=== PATIENT | female | born 2000 | race Caucasian/White ===

== ENCOUNTER 2020-08-30 12:05 | Inpatient (IN) ==
--- NOTE | 2020-08-30 13:14 | Obstetrical Progress Note ---
Date of Service August 30, 2020 Assessment & Plan (1) Two vessel umbilical cord: Plan: Reassuring heart tones and movement. Kick counts while at home given [address] Connor did bedside sonogram today in office for position and did not comment on any abnormalities, but when I speak to her by phone she also notes she didn't get a specific look at fluid and can't comment on adequacy. Given 40wk GA, would like at least a fluid check, so will get a BPP here on L&D. Last growth scan at 36wk reviewed, reassuring. Patient is planned for induction, she and FOB would like to wait at least a bit to allow cervical ripening if not actual spontaneous labor. Available dates in book reviewed with them at bedside today. They will choose a date prior to departing, assuming BPP is OK. They are aware to schedule office visit for the business day prior to IOL. Subjective 20yo at 40wk with SIUP complicated by 2VC. Sent to L&D after office visit due to NST in office being "reactive but with baseline 160." I have discussed the findings in office with Dr. Connor directly, by phone. Essentially the baseline was upper limit of normal, strip otherwise looked reassuring, and no BPP was done in office today. The patient was instead sent to L&D for longer monitoring to follow her baseline and ensure it did not elevate out of normal range, and to schedule an IOL if delivery was not in dicated today. Here on L&D the patient notes good FM, no painful ctx, no LOF, no VB. Physical Exam Physical Exam: FHT baseline 155, mod alise, +acc, no decels. Nearing an hour of monitoring at this time. Fetus likely in sleep cycle when patient first put on monitor, baseline then noted to vary between 145-155 at times but no changes that qualify as a deceleration (15bpm below baseline x 15 seconds) are appreciated. More recent portion of monitoring shows frequent accelerations. [place] rare activity which patient is able to feel if she watches the toco but does not find painful. Cervix per Dr. Connor was cl/th/hi today in office. Results & Data ([facility]) Vital Signs (Past 12 Hours) Vital Signs Temp Pulse Resp BP 08/30/20 12:20 98.2 F 20 08/30/20 12:15 97 H 121/82 PG Care Time/CCT Total # of Minutes Spent Total Time Spent with Patient: Total time spent is greater than 50% in coordination of care (as documented) at patient's floor/unit and/or counseling patient: Coding Level of Care Code None Diagnoses Two vessel umbilical cord Q27.0
--- NOTE | 2020-08-30 14:23 | Ultrasound Report ---
US OB BPP wo NST single CLINICAL HISTORY: 40wk 2VC COMPARISON STUDY: OB ultrasound August 03, 2020. TECHNIQUE: Transabdominal sonography of the pelvis was performed to assess biophysical profile. FINDINGS: Single viable intrauterine gestation is noted. heart rate is within normal limits ran ging from 1329 to 156 bpm. Amniotic fluid index is normal at 11.73 cm. Presentation is cephalic. No p lacental abnormalities are identified by sonography. breathing and movement were normal. tone was diminished. Therefore, the biophysical profile is 6 out of 8. IMPRESSION: 1. Single viable intrauterine gestation with normal heart rate. 2. Biophysical profile 6 out of 8. Diminished tone. ACT 112: Negative or not required by law. Electronically signed by: Mariusz Schumacher M.D. 08/30/2020 2:21 PM
[2020-08-30] MEDS ORDERED: OXYTOCIN 30 UNITS/500 ML BAG IV PRN ×2 (15:10→15:16)
[2020-08-30] MEDS ORDERED: LACTATED RINGER'S 1,000 ML IV PRN (15:10)
--- NOTE | 2020-08-30 15:20 | Obstetrical Progress Note ---
Date of Service August 30, 2020 Assessment & Plan (1) Two vessel umbilical cord: Plan: Given 2VC and NRFHT/BPP today, move to IOL. Patient for harris balloon, +/- concurrent pitocin. Subjective Patient continues to be without complaints and feeling good FM, now returned from US suite where she had BPP. She and FOB were informed by this MD that she had a BPP of 6/8. This could be followed by a repeat in 24hr, but at 40 weeks with any question of status, there is no upside to waiting that extra day for the fetus and my recommendation would be to proceed to induction of labor. They are agreeable to this plan. Physical Exam Physical Exam: /-2/soft/post VTX intact no VB FHT Cat 1 Sandy Q6-7, not painful Results & Data ([place]) Vital Signs (Past 12 Hours) Vital Signs Temp Pulse Resp BP 08/30/20 15:13 93 H 138/73 08/30/20 15:10 103 H 141/75 H 08/30/20 15:02 96 H 142/83 H 08/30/20 14:17 18 08/30/20 12:20 98.2 F 20 08/30/20 12:15 97 H 121/82 PG Care Time/CCT Total # of Minutes Spent Total Time Spent with Patient: Total time spent is greater than 50% in coordination of care (as documented) at patient's floor/unit and/or counseling patient: Coding Level of Care Code None Diagnoses Two vessel umbilical cord Q27.0
[2020-08-30 15:37] LABS: Hemoglobin 11.8 g/dL (12.0-16.0); Mean Corpuscular Hemoglobin 24.4 pg (25-34); Mean Corpuscular Hgb Conc 31.9 g/dL (32-36); Mean Corpuscular Volume 76.6 fL (80-100); Platelet Count 178 K/uL (130-400); RDW Coefficient of Variation 14.5 % (11.5-14.5); RDW Standard Deviation 40.9 fL (36.4-46.3); Red Blood Count 4.83 M/uL (4.2-5.4)
[2020-08-31] MEDS ORDERED: BUTORPHANOL TARTRATE 1 MG/ML VIAL IV PRN (04:22)
[2020-08-31] MEDS ORDERED: SODIUM CHLORIDE 0.9% INJ 10 ML VIAL ONE (05:18)
[2020-08-31] MEDS ORDERED: ePHEDrine sulfate 50 MG/ML AMP ONE (05:18)
[2020-08-31] MEDS ORDERED: BUPIVACAINE 0.25% 30 ML VIAL ONE (05:18)
[2020-08-31] MEDS ORDERED: fentaNYL citrate 100 MCG/2 ML VIAL ONE (05:19)
[2020-08-31] MEDS ORDERED: fentaNYL 2MCG/ML ROPIVACAINE 1.25MG/ML 100 ML BAG EPI ONE (05:19)
--- NOTE | 2020-08-31 05:50 | Anesthesiology Consultation ---
Date of Service August 31, 2020 Assessment & Plan (1) Supervision of normal intrauterine in primigravida: ASA ASA2 Proposed Anesthesia Anesthesia Type: Labor Epidural Risk / Benefits Reviewed With: PT / POA / Parent / Guardian, Accepts Plan and Informed Consent Obtained History Height/Weight Height: 5 ft 7 in Weight: 85.275 kg Allergies Allergy/AdvReac Type Severity Reaction Status Date / Time No Known Allergies Allergy Verified 08/30/20 10:49 Medications Home Medications Medication Instructions Recorded Confirmed Last Taken prenat.vits,nate,zkv-hbqj-wqmtk 1 tab PO DAILY 01/28/20 08/30/20 08/26/20 20:00 breast pump #1 ea 08/16/20 08/30/20 Unknown Active Medications Generic Name Dose Route Start Last Admin Trade Name Freq PRN Reason Stop Dose Admin Butorphanol Tartrate 1 mg 08/31/20 04:22 08/31/20 04:38 Butorphanol Tartrate 1 Mg/Ml Vial IV 09/30/20 04:21 1 mg Q2HWA PRN Administration Pain Oxytocin 30 units in 500 mls @ 3 mls/hr 08/30/20 15:16 08/31/20 03:50 Pitocin IV 09/01/20 15:15 0.18 units/hr .Q24H PRN 3 mls/hr Labor Induction/Augmentation Titration Protocol 0.18 UNITS/HR Lactated Ringer's 1,000 mls @ 125 mls/hr 08/30/20 15:10 08/31/20 02:31 Lr IV 09/01/20 15:09 125 mls/hr .Q8H PRN Administration L&D Protocol Protocol NPO Date Last Intake of Fluids: 08/31/20 Time Last Intake of Fluids: 05:00 Date Last Intake of Solids: 08/31/20 Time Last Intake of Solids: 00:00 Past Medical History Medical History Anxiety Chronic headaches Past Family History Family History Family/Other Anemia Diabetes Hypertension Dyslipidemia Hepatitis Ovarian cyst Mother Multiple sclerosis Hypothyroidism Grandfather (Maternal) Diabetes Grandmother (Maternal) Hypothyroidism Past Surgical History Surgical History No pertinent past surgical history S/P wisdom tooth extraction Social History Smoking Status: Never smoker Hx Alcohol Use: No Hx Substance Use: No Physical Exam Vital Signs Last Vital Signs Temp 37.0 C 08/31/20 04:00 Pulse 88 08/31/20 03:48 Resp 18 08/31/20 00:17 BP 120/67 08/31/20 03:48 ENMT Mouth: no TMJ abnormality Thyromental Distance: > or= 3.5 Finger Breadths Mallampati Class: II Neck normal visual inspection and trachea midline; neck extension not limited Respiratory normal respiratory effort Auscultation: lungs clear to auscultation bilaterally Cardiovascular Rate/Rhythm: regular rate and regular rhythm Heart Sounds: no murmur Musculoskeletal Spine: normal cervical ROM Extremities: full ROM of extremities Neurologic moves all extremities Psychiatric Orientation: alert and oriented x 3 Testing Laboratory Results 08/30/20 15:27
[2020-08-31] MEDS ORDERED: NALOXONE HCL 1 MG in SODIUM CHLORIDE 0.9% 1000ML 1,000 ML IV PRN (06:14)
[2020-08-31] MEDS ORDERED: ePHEDrine sulfate 50 MG/ML AMP IV PRN (06:14)
[2020-08-31] MEDS ORDERED: NALOXONE HCL 0.4 MG/1 ML VIAL/CARP IV PRN (06:14)
[2020-08-31] MEDS ORDERED: fentaNYL 2MCG/ML ROPIVACAINE 1.25MG/ML 100 ML BAG EPI PRN (06:14)
[2020-08-31] MEDS ORDERED: ONDANSETRON INJ 2 MG/ML 2 ML VIAL IV PRN (06:14)
[2020-08-31] MEDS ORDERED: NALBUPHINE HCL INJ 10 MG/ML AMP IV PRN (06:14)
[2020-08-31] MEDS ORDERED: diphenhydrAMINE 50 MG/ML VIAL IV PRN (06:14)
[2020-08-31] MEDS ORDERED: METOCLOPRAMIDE HCL 20 MG in SODIUM CHLORIDE 0.9% 50 ML IV PRN (06:14)
--- NOTE | 2020-08-31 08:27 | Labor Progress Brief Note ---
Date of Service August 31, 2020 Subjective Reason For Note: Routine Evaluation Assessment & Plan (1) Mild preeclampsia: Plan: 20yo at 40.1 weeks GA. IOL 1 Fetus: Cat 1 2. Labor: s/p Benjamin. SROM, Continue pitocin. Admission and Anticipated Discharge Date Admission Date: August 30, 2020 Physical Exam Constitutional: WD/WN, vitals as above Genitourinary: OB Exam Abdomen: + vertex Manual OB Exam: + cervical dilation (7.5), + cervical effacement 90% and + station 0 OB Exam Monitor Tracing: + external FHT monitor used, + external uterine monitor used, + ca tegory I and + normal FHT variability Results & Data ([facility]) Vital Signs (Past 12 Hours) Vital Signs Temp Pulse Resp BP Pulse Ox 08/31/20 08:21 108 H 120/78 08/31/20 08:18 96 H 100 08/31/20 08:13 94 H 100 08/31/20 08:08 106 H 100 08/31/20 08:06 104 H 132/74 08/31/20 08:03 121 H 100 08/31/20 07:58 76 100 08/31/20 07:53 77 100 08/31/20 07:51 73 121/61 08/31/20 07:48 81 98 08/31/20 07:43 84 98 08/31/20 07:38 75 98 08/31/20 07:36 74 122/62 08/31/20 07:33 80 97 08/31/20 07:28 80 98 08/31/20 07:23 72 98 08/31/20 07:20 75 115/65 08/31/20 07:18 72 98 08/31/20 07:13 96 H 99 08/31/20 07:08 75 96 08/31/20 07:05 36.6 C 82 20 115/65 08/31/20 07:03 104 H 98 08/31/20 06:58 97 H 97 08/31/20 06:53 75 97 08/31/20 06:51 85 119/61 08/31/20 06:48 96 H 97 08/31/20 06:45 18 08/31/20 06:43 92 H 97 08/31/20 06:38 82 110/74 97 08/31/20 06:32 87 97 08/31/20 06:30 18 08/31/20 06:27 83 96 08/31/20 06:22 90 94 08/31/20 06:19 87 123/79 08/31/20 06:17 92 H 118/72 97 08/31/20 06:15 96 H 18 113/65 08/31/20 06:13 93 H 118/70 08/31/20 06:12 36.8 C 92 H 97 08/31/20 06:11 84 116/65 08/31/20 06:09 98 H 120/75 08/31/20 06:07 89 100 08/31/20 06:06 100 H 120/70 08/31/20 06:05 99 H 87 L 08/31/20 06:02 109 H 99 08/31/20 05:57 113 H 95 08/31/20 05:55 117 H 88 L 08/31/20 05:52 102 H 100 08/31/20 05:47 95 H 98 08/31/20 04:00 37.0 C 08/31/20 03:48 88 120/67 08/31/20 01:57 37.0 C 08/31/20 00:17 37.0 C 18 08/31/20 00:13 71 111/61 Coding Level of Care Code None Diagnoses Mild preeclampsia O14.00
--- NOTE | 2020-08-31 11:48 | Anesthesia Procedure Note ---
Date of Service August 31, 2020 Anesthesia Post Epidural Note Vital Signs Vital Signs: Temp Pulse Resp BP Pulse Ox 36.7 C 106 H 20 111/56 L 96 08/31/20 09:07 08/31/20 11:35 08/31/20 09:07 08/31/20 11:35 08/31/20 10:58 Notes Mental Status: alert / awake / arousable and participated in evaluation Nausea / Vomiting: adequately controlled Pain: adequately controlled Airway Patency, RR, SpO2: stable & adequate BP & HR: stable & adequate Hydration State: stable & adequate Neuraxial Anesthesia: was administered and sensory block is resolving Anesthetic Complications: no major complications apparent and Pt Satisfied with anesthetic care Epidural: Removed without complications and With tip intact
--- NOTE | 2020-08-31 11:59 | Delivery Summary ---
Vaginal Delivery Summary Date of Service August 31, 2020 Vaginal Delivery Summary and 1st Degree LAC (bilateral labial lac repaired) Patient is a 20-year-old 1 P0 white female who had presented to her scheduled OB visit and NST for two-vessel cord. The heart baseline was elevated she was sent to labor and delivery for further evaluation and possible induction of labor. Biophysical profile was done which was 6 out of 8. Because she is at 40 weeks gestation now, the plan was induction of labor. A Benjamin catheter was placed in the cervix for ripening. Pitocin augmentation of her labor was begun. Membranes were ruptured for clear fluid. She received effective epidural analgesia. She progressed to full dilation and pushed effectively over intact perineum for delivery of a viable female . After the head was delivered the right hand was then delivered posteriorly. The shoulders and rest of the infant were delivered easily. The was vigorous and moving all 4 limbs. After 1 minute the cord was clamped clamped and cut. The placenta was expressed intact with a two-vessel cord. bleeding was controlled with dilute Pitocin. Bilateral labial lacerations were repaired with 3-0 chromic in the usual fashion. Estimated blood loss was 350 cc. Mother and infant were doing well after delivery. [facility] [place] Vaginal Delivery Charge Delivery Type Details: and 1st Degree LAC (bilateral labial lac repaired)
[2020-08-31] MEDS ORDERED: SUPERCREAM 0.870% 15 GM JAR EXT PRN (15:00)
[2020-08-31] MEDS ORDERED: IBUPROFEN 600 MG TAB PO PRN (15:00)
[2020-08-31] MEDS ORDERED: OXYTOCIN 30 UNITS/500 ML BAG IV PRN (15:00)
[2020-08-31] MEDS ORDERED: BENZOCAINE 20% AER SPR 82.5 GM CAN EXT PRN (15:00)
[2020-08-31] MEDS ORDERED: DIPHTHERIA/TETANUS/PERTUSSIS 0.5 ML SYR/VIAL IM ONE (15:00)
[2020-08-31] MEDS ORDERED: HYDROCORTISONE ACETATE 25 MG SUPP PR PRN (15:00)
[2020-08-31] MEDS ORDERED: bisacodyL 10 MG SUPP PR PRN (15:00)
[2020-08-31] MEDS ORDERED: ACETAMINOPHEN 325 MG TAB PO PRN (15:00)
[2020-08-31] MEDS ORDERED: oxyCODONE/ACETAMINOPHEN 5mg/325mg TAB PO PRN (15:00)
[2020-08-31] MEDS ORDERED: Nursing to Pharmacy Communication SCH (20:45)
[2020-08-31] MEDS: DOCUSATE SODIUM 100 MG CAP PO SCH (21:49)
[2020-08-31] MEDS: IBUPROFEN 200 MG/10 ML UDC PO PRN (23:43)
[2020-09-01] MEDS: IBUPROFEN 200 MG/10 ML UDC PO PRN ×2 (04:38→08:52)
[2020-09-01 06:31] LABS: Hematocrit (blood only) 29.9 % (37-47); Hemoglobin 9.3 g/dL (12.0-16.0); Mean Corpuscular Hemoglobin 24.1 pg (25-34); Mean Corpuscular Hgb Conc 31.1 g/dL (32-36); Mean Corpuscular Volume 77.5 fL (80-100); Mean Platelet Volume 11.5 fL (7.4-10.4); Platelet Count 164 K/uL (130-400); RDW Coefficient of Variation 14.7 % (11.5-14.5); RDW Standard Deviation 42.1 fL (36.4-46.3); Red Blood Count 3.86 M/uL (4.2-5.4); White Blood Count 11.28 K/uL (4.8-10.8)
[2020-09-01] MEDS ORDERED: PRENATAL VITAMIN 1 TAB PO SCH (08:00)
--- NOTE | 2020-09-01 08:08 | Obstetrical Progress Note ---
Date of Service September 01, 2020 Assessment & Plan (1) Encounter for care and examination after delivery: satisfactory progress continue current care plan feeding issues with the baby so will continue to monitor today Day #:: 1 Subjective Ambulation: ambulating normally Voiding: no voiding problems Diet Tolerance:: regular diet Lochia:: Small Feeding Type:: bottle feeding Review of Systems All systems reviewed & are unremarkable except as noted in HPI & below Physical Exam Constitutional WD/WN, vitals as above Gastrointestinal (Abdomen) normal bowel sounds, soft, nontender, no hepatosplenomegaly Psychiatric A+Ox3, euthymic affect Genitourinary OB Exam Abdomen: + fundal height Fundus: + firm and + relation to umbilicus (at U); not tender Results & Data ([facility]) Vital Signs (Past 12 Hours) Vital Signs Temp Pulse Resp BP Pulse Ox 09/01/20 03:45 97.9 F 76 20 101/70 100 08/31/20 23:40 98.4 F 76 20 105/71 100 08/31/20 23:00 98.2 F 81 16 118/80 100
[2020-09-01] MEDS: DOCUSATE SODIUM 100 MG CAP PO SCH (08:52)
[2020-09-01] MEDS ORDERED: SERTRALINE HCL 50 MG TABLET PO SCH (09:00)
[2020-09-01] MEDS ORDERED: bisacodyL 5 MG TABEC PO SCH (20:00)
== END 2020-09-01 18:10 | disposition home or self-care (01) | DRG 807 ==
LOC: OPB 12:05 → 4S1 12:07 → 4S2 08-31 15:22
DX: O70.0 First degree perineal laceration during delivery; O14.04 Mild to moderate pre-eclampsia, complicating childbirth; O35.1XX1 Maternal care for (suspected) chromosomal abnormality in fetus, fetus 1; Z37.0 Single live birth; Z3A.40 40 weeks gestation of pregnancy; Q27.0 Congenital absence and hypoplasia of umbilical artery

== ENCOUNTER 2022-10-08 03:55 | Inpatient (IN) ==
[2022-10-08] MEDS ORDERED: OXYTOCIN 30 UNITS/500 ML BAG IV PRN ×2 (04:14→09:37)
[2022-10-08] MEDS ORDERED: LIDOCAINE 1% LOCAL 20 ML VIAL INFIL PRN (04:14)
[2022-10-08] MEDS: LACTATED RINGER'S 1,000 ML IV PRN ×2 (04:25→06:14)
[2022-10-08] MEDS ORDERED: fentaNYL citrate PF 100 MCG/2 ML VIAL ONE (04:26)
[2022-10-08] MEDS ORDERED: BUPIVACAINE 0.25% PF 30 ML VIAL ONE (04:27)
[2022-10-08] MEDS ORDERED: fentaNYL 2MCG/ML ROPIVACAINE 1.25MG/ML 100 ML BAG EPI ONE (04:27)
[2022-10-08] MEDS ORDERED: SODIUM CHLORIDE 0.9% PF INJ 10 ML VIAL ONE (04:27)
[2022-10-08] MEDS ORDERED: ePHEDrine sulfate 50 MG/ML AMP ONE (04:27)
[2022-10-08] MEDS ORDERED: LIDOCAINE 2%/EPINEPHRINE 1:200,000 20 ML PF ONE (04:27)
[2022-10-08 05:18] LABS: Hematocrit (blood only) 32.7 % (37.0-47.0); Hemoglobin 10.6 g/dl (12.0-16.0); Mean Corpuscular Hemoglobin 24.5 pg (25.0-34.0); Mean Corpuscular Hgb Conc 32.4 g/dL (32.0-36.0); Mean Corpuscular Volume 75.5 fL (80.0-100.0); Mean Platelet Volume 12.3 fL (9.4-12.4); Platelet Count 212 K/uL (130-400); RDW Coefficient of Variation 14.3 % (11.5-14.5); RDW Standard Deviation 38.7 fL (36.4-46.3); Red Blood Count 4.33 M/uL (4.20-5.40); White Blood Count 14.32 K/ul (4.8-10.8)
--- NOTE | 2022-10-08 05:25 | Anesthesiology Consultation ---
Date of Service October 08, 2022 Assessment & Plan Chart Review Chart Review: Acceptable Risk for Labor Epidural Consults Requested none History Height/Weight Height: 5 ft 7 in Weight: 72.575 kg Allergies Allergy/AdvReac Type Severity Reaction Status Date / Time No Known Allergies Allergy Verified 10/08/22 04:06 Medications Home Medications Medication Instructions Recorded Confirmed Last Taken prenat.vits,nate,wna-cdhi-qdbtp 1 tab PO DAILY 01/28/20 10/08/22 10/07/22 sertraline 25 mg tablet 25 mg PO DAILY #30 tabs 09/28/22 10/08/22 10/07/22 Active Medications Generic Name Dose Route Start Last Admin Trade Name Freq PRN Reason Stop Dose Admin Lactated Ringer's 1,000 mls @ 125 mls/hr 10/08/22 04:14 10/08/22 05:12 Lr IV 10/10/22 04:13 125 mls/hr .Q8H PRN Infusion L&D Protocol Protocol Past Medical History Medical History (Updated 10/08/22 @ 04:15 by Karen Cr RN) Anxiety Chronic headaches Varicella vaccination Past Family History Family History Family/Other Anemia Diabetes Hypertension Dyslipidemia Hepatitis Ovarian cyst Mother Multiple sclerosis Hypothyroidism Grandfather (Maternal) Diabetes Grandmother (Maternal) Hypothyroidism Denies family history of Ovarian cancer Breast cancer Colorectal cancer Past Surgical History Surgical History S/P wisdom tooth extraction Social History Smoking Status: Never smoker Do You Dip or Chew Tobacco: No Hx Alcohol Use: No Hx Substance Use: No substance use type: does not use Physical Exam Vital Signs Last Vital Signs Temp 36.8 C 10/08/22 04:31 Pulse 81 10/08/22 05:24 Resp 20 10/08/22 04:31 BP 106/65 10/08/22 05:24 Pulse Ox 100 10/08/22 05:22 Testing Laboratory Results 10/08/22 04:30
[2022-10-08] MEDS ORDERED: NALBUPHINE HCL INJ 10 MG/ML AMP IV PRN (05:26)
[2022-10-08] MEDS ORDERED: LIDOCAINE 2% MPF LOCAL 5 ML VIAL EPI PRN (05:26)
[2022-10-08] MEDS ORDERED: NALOXONE HCL 0.4 MG/1 ML VIAL/CARP IV PRN (05:26)
[2022-10-08] MEDS ORDERED: SODIUM CHLORIDE 0.9% PF INJ 10 ML VIAL EPI STA (05:26)
[2022-10-08] MEDS ORDERED: BUPIVACAINE 0.25% PF 30 ML VIAL EPI STA (05:26)
[2022-10-08] MEDS ORDERED: ONDANSETRON INJ 2 MG/ML 2 ML VIAL IV PRN (05:26)
[2022-10-08] MEDS ORDERED: fentaNYL citrate PF 100 MCG/2 ML VIAL EPI PRN (05:26)
[2022-10-08] MEDS ORDERED: fentaNYL citrate PF 100 MCG/2 ML VIAL EPI STA (05:26)
[2022-10-08] MEDS ORDERED: diphenhydrAMINE 50 MG/ML VIAL IV PRN (05:26)
[2022-10-08] MEDS ORDERED: BUPIVACAINE 0.25% PF 30 ML VIAL EPI PRN (05:26)
[2022-10-08] MEDS ORDERED: NALOXONE HCL 1 MG in SODIUM CHLORIDE 0.9% 1,000 ML IV PRN (05:26)
[2022-10-08] MEDS ORDERED: ROPIVACAINE 0.5% PF 5 MG/ML 20 ML VIAL EPI PRN (05:26)
[2022-10-08] MEDS ORDERED: fentaNYL 2MCG/ML ROPIVACAINE 1.25MG/ML 100 ML BAG EPI PRN (05:26)
[2022-10-08] MEDS ORDERED: SODIUM CHLORIDE 0.9% PF INJ 10 ML VIAL EPI PRN (05:26)
[2022-10-08] MEDS ORDERED: LIDOCAINE 2%/EPINEPHRINE 1:200,000 20 ML PF EPI STA (05:26)
[2022-10-08] MEDS ORDERED: ePHEDrine sulfate 50 MG/ML AMP IV PRN (05:26)
[2022-10-08] MEDS ORDERED: miSOPROStoL 200 MCG TAB ONE (09:06)
--- NOTE | 2022-10-08 09:36 | Delivery Summary ---
Vaginal Delivery Summary Date of Service October 08, 2022 Vaginal Delivery Summary and 1st Degree LAC Patient progressed to 10 cm dilated 100% effaced +2 station pushed over intact perineum with epidural anesthesia and delivered a viable female with weight and Apgars pending. Has a delivered in URBANO position rest due to right transverse. No nuchal cord was noted. Body shoulders quickly followed and was noted to be vigorous soon after delivery. A 1 minute delayed cord clamping was initiated after which the cord was double clamped and cut. Cord blood obtained. Attention was then turned to delivery the placenta was delivered intact with three-vessel cord gentle cord traction. Inspection of the perineum vagina and cervix there is noted to be bilateral periurethral lacerations which were repaired with 3-0 Vicryl with interrupted stitch. Needle sponge and counts are correct at the completion of the case. Both mother and stable in the immediate postdelivery period. MNP Vaginal Delivery Charge Delivery Type Details: and 1st Degree LAC
[2022-10-08] MEDS ORDERED: IBUPROFEN 600 MG TAB PO PRN (09:37)
[2022-10-08] MEDS ORDERED: miSOPROStoL 200 MCG TAB PR ONE (09:37)
[2022-10-08] MEDS ORDERED: ACETAMINOPHEN 325 MG TAB PO PRN (09:37)
[2022-10-08] MEDS ORDERED: BENZOCAINE 20% SPRY 85 APPLN/85 GM CAN EXT PRN (09:37)
[2022-10-08] MEDS ORDERED: DIPHTHERIA/TETANUS/PERTUSSIS Vaccine (Tdap, Age 7+yrs) 0.5mL SYR/VL IM ONE (09:37)
[2022-10-08] MEDS ORDERED: bisacodyL 10 MG SUPP PR PRN (09:37)
[2022-10-08] MEDS ORDERED: HYDROCORTISONE ACETATE 25 MG SUPP PR PRN (09:37)
--- NOTE | 2022-10-08 10:28 | History & Physical Report ---
Date of Service October 08, 2022 Assessment & Plan (1) Encounter for supervision of normal in multigravida: Plan: 22-year-old G4, P1 currently at 39 weeks 6 days gestational age presents in labor. Category 1 tracing noted. Patient having painful regular contractions we will continue to monitor. Epidural as needed. GBS negative (2) Normal labor: Admission and Anticipated Discharge Date Admission Date: October 08, 2022 History of Present Illness Primary Care Provider: Gurvinder Sosa DO 22-year-old G4, P1 currently at 39 weeks 6 days gestational age presents in labor. uncomplicated to date. OB Labs: Blood Type AB Positive 03/23/22 Antibody Screen NEGATIVE 03/23/22 Hemoglobin 10.6 g/dl (12.0-16.0) L 07/21/22 Hematocrit 32.1 % (37.0-47.0) L 07/21/22 Mean Corpuscular Volume 86.4 fL (80.0-100.0) 03/23/22 Platelet Count 214 K/uL (130-400) 03/23/22 Rubella IgG Antibody Immune (Immune) 03/23/22 Rapid Plasma Reagin Nonreactive (Nonreactive) 03/23/22 Hepatitis B Surface Antigen Neg (Neg) 02/03/20 Hepatitis B Surface Antigen. NON-REACTIVE (NON-REACTIVE) 03/23/22 Hepatitis C Antibody (EIA) NON-REACTIVE (NON-REACTIVE) 03/23/22 HIV (1&2) Ab and P24 Ag, 4th Gener Neg (Neg) 02/03/20 HIV (1&2) Ag and Ab Confirmation NON-REACTIVE (NON-REACTIVE) 03/23/22 Glucose 1 Hour 50 gm Load 158 mg/dl (70-130) H 07/21/22 OB Optional Labs: Chlamydia trachomatis RNAD Not Detected (NotDetected) 03/23/22 Neisseria gonorrhoeae RNA Not Detected (NotDetected) 03/23/22 Thyroid Stimulating Hormone (TSH) 1.394 uIu/ml (0.300-4.500) 06/30/22 Labs Reviewed: cfdna-low risk--mln Allergies Allergy/AdvReac Type Severity Reaction Status Date / Time No Known Allergies Allergy Verified 10/08/22 04:06 Home Medications Medication Instructions Recorded Confirmed Type prenat.vits,nate,pnt-kaav-arbaf 1 tab PO DAILY 01/28/20 10/08/22 History sertraline 25 mg tablet 25 mg PO DAILY #30 tabs 09/28/22 10/08/22 Rx Patient History Medical History (Updated 10/08/22 @ 10:27 by Omer Hernandez MD) Anxiety Chronic headaches Varicella vaccination Surgical History S/P wisdom tooth extraction Family History Family/Other Anemia Diabetes Hypertension Dyslipidemia Hepatitis Ovarian cyst Mother Multiple sclerosis Hypothyroidism Grandfather (Maternal) Diabetes Grandmother (Maternal) Hypothyroidism Denies family history of Ovarian cancer Breast cancer Colorectal cancer Social History Smoking Status: Never smoker Do You Dip or Chew Tobacco: No; Hx Alcohol Use: No Hx Substance Use: No Preferred Language: American Communication Ability: Effective Interrelated Special Education Teacher Required: No Beliefs That Will Affect Care: None marital status: Single marital status details: valdez Curry(22) [phone] Current Living Situation: Family and Significant Other Current Living Situation Comment: lives with FOB 1 dog, daughter current occupational status: employed current occupation: RN [employer] Other Information That Helps Us Care for You: No Feels Safe at Home: Yes Safety Concerns: Feels Safe At This Time Assistive Devices: Glasses Physical Exam Genitourinary: Exam per nurse Results & Data Vital Signs (Past 12 Hours) Vital Signs Temp Pulse Resp BP Pulse Ox 10/08/22 07:57 101 H 99 10/08/22 07:52 89 100 10/08/22 07:48 99 H 88 L 10/08/22 07:47 98 H 96 10/08/22 07:46 100 H 108/68 10/08/22 07:42 96 H 99 10/08/22 07:37 95 H 99 10/08/22 07:32 88 99 10/08/22 07:31 90 113/70 10/08/22 07:27 92 H 99 10/08/22 07:22 85 100 10/08/22 07:17 81 116/72 98 10/08/22 07:12 99 H 100 10/08/22 07:07 92 H 99 10/08/22 07:02 98 H 99 10/08/22 07:01 36.9 C 92 H 113/67 10/08/22 06:57 96 H 100 10/08/22 06:52 99 10/08/22 06:52 104 H 10/08/22 06:52 107 H 92 10/08/22 06:47 113 H 100 10/08/22 06:42 89 100 10/08/22 06:37 88 100 10/08/22 06:32 93 H 99 10/08/22 06:31 93 H 115/55 L 10/08/22 06:27 97 H 99 10/08/22 06:22 93 H 98 10/08/22 06:17 94 H 99 10/08/22 06:18 96 H 118/58 L 10/08/22 06:12 89 98 10/08/22 06:07 89 98 10/08/22 06:02 99 H 98 10/08/22 06:01 90 114/64 10/08/22 05:57 103 H 98 10/08/22 05:52 102 H 98 10/08/22 05:47 90 100 10/08/22 05:45 88 109/64 10/08/22 05:42 88 98 10/08/22 05:40 86 111/61 10/08/22 05:37 90 98 10/08/22 05:32 86 99 10/08/22 05:33 91 H 119/76 10/08/22 05:30 90 108/62 10/08/22 05:27 18 10/08/22 05:27 18 10/08/22 05:19 20 10/08/22 05:19 20 10/08/22 05:27 99 10/08/22 05:27 88 10/08/22 05:27 90 109/64 10/08/22 05:24 81 20 106/65 10/08/22 05:22 89 100 10/08/22 05:21 77 108/68 10/08/22 05:18 82 110/67 10/08/22 05:17 81 100 10/08/22 05:16 86 20 130/73 10/08/22 05:12 98 H 116/72 100 10/08/22 05:09 104 H 124/80 10/08/22 05:07 106 H 82 L 10/08/22 05:06 110 H 89 L 10/08/22 05:02 97 H 100 10/08/22 04:57 85 L 10/08/22 04:57 109 H 10/08/22 04:57 110 H 86 L 10/08/22 04:52 97 H 100 10/08/22 04:47 95 H 100 10/08/22 04:42 100 H 100 10/08/22 04:37 101 H 100 10/08/22 04:31 36.8 C 93 H 20 118/75 Coding Level of Care Code None Diagnoses Encounter for supervision of normal in multigravida Z34.80 Normal labor O80; Z37.9
--- NOTE | 2022-10-08 10:29 | Anesthesia Procedure Note ---
Date of Service October 08, 2022 Anesthesia Post Epidural Note Vital Signs Vital Signs: Temp Pulse Resp BP Pulse Ox 98.4 F 81 18 114/64 99 10/08/22 07:01 10/08/22 10:07 10/08/22 05:27 10/08/22 09:57 10/08/22 10:07 Pain Intensity Bilateral Lower Abdomen: Pain Intensity: 1 Notes Mental Status: alert / awake / arousable and participated in evaluation Nausea / Vomiting: adequately controlled Pain: adequately controlled Airway Patency, RR, SpO2: stable & adequate BP & HR: stable & adequate Hydration State: stable & adequate Neuraxial Anesthesia: was administered and sensory block is resolving Anesthetic Complications: no major complications apparent and Pt Satisfied with anesthetic care Epidural: Removed without complications and With tip intact
[2022-10-08] MEDS ORDERED: METHYLERGONOVINE MALEATE 0.2 MG/ML AMP IM ONE (12:27)
[2022-10-08] MEDS ORDERED: METHYLERGONOVINE MALEATE 0.2 MG/ML AMP ONE (12:31)
[2022-10-08] MEDS ORDERED: Nursing to Pharmacy Communication SCH (13:15)
[2022-10-08] MEDS ORDERED: IBUPROFEN 200 MG/10 ML UDC PO PRN (13:43)
[2022-10-08] MEDS: ACETAMINOPHEN SUSP 325 MG/10.15 ML UDC PO PRN ×2 (13:53→20:09)
[2022-10-09] MEDS: DOCUSATE SODIUM 100 MG CAP PO SCH ×2 (01:47→07:48)
--- NOTE | 2022-10-09 01:55 | Obstetrical Progress Note ---
Date of Service <Satinder Bhakta DO - Last Filed: 10/09/22 07:39> October 09, 2022 Assessment & Plan <Satinder Bhakta DO - Last Filed: 10/09/22 07:39> (1) Normal spontaneous vaginal delivery: Plan S/p , post- day 1, feels well today, eating, voiding, and ambulating well Pain well controlled with Tylenol Routine post- care - OOB, ambulation Likely discharge today pending peds evaluation After discharge, will have 6 week follow-up with Dr. Hernandez. <Omer Hernandez MD - Last Filed: 10/09/22 07:58> (1) Normal spontaneous vaginal delivery: Subjective <Satinder Bhakta DO - Last Filed: 10/09/22 07:39> Ambulation: ambulating normally Voiding: no voiding problems Passing Gas:: Yes Diet Tolerance:: regular diet Lochia:: Moderate Feeding Type:: bottle feeding Pain well controlled with prn Tylenol Review of Systems -Denies fever or chills -Denies dyspnea, chest pain, or palpitations -Denies breast pain -Denies dysuria -Denies headache or changes in vision Physical Exam <Satinder Bhakta - Last Filed: 10/09/22 07:39> General: Alert and oriented. No acute distress Cardiac: Regular rate and rhythm, no murmurs appreciated Respiratory: Lungs clear to auscultation bilaterally, No increased work of breathing Abdominal: Soft, non-tender, non-distended. Bowel sounds present. Uterus: Uterine fundus firm, palpable below umbilicus Extremities: No lower extremity edema, calves non-tender bilaterally Results & Data <Satinder Bhakta - Last Filed: 10/09/22 07:39> Vital Signs (Past 12 Hours) Vital Signs Temp Pulse Resp BP 10/08/22 23:01 36.6 C 79 18 111/74 10/08/22 19:52 36.6 C 92 H 18 118/79 10/08/22 16:20 36.8 C 69 18 120/82 <Omer Hernandez MD - Last Filed: 10/09/22 07:58> Co-Signing Physician Notes Patient seen with resident and agree with the above findings and plan. Stable for discharge. Resident Activity Tracking <Satinder Bhakta DO - Last Filed: 10/09/22 07:39> Resident Involvement: Resident Care Provided Care Provided: OB Delivery
[2022-10-09] MEDS: ACETAMINOPHEN SUSP 325 MG/10.15 ML UDC PO PRN (07:48)
[2022-10-09] MEDS ORDERED: PRENATAL VITAMIN 1 TAB PO SCH (08:00)
[2022-10-09] MEDS ORDERED: FERROUS SULFATE 325 MG TAB PO SCH (08:00)
[2022-10-09] MEDS ORDERED: SERTRALINE HCL 50 MG TABLET PO SCH (09:00)
[2022-10-09] MEDS ORDERED: bisacodyL 5 MG TABEC PO SCH (20:00)
== END 2022-10-09 15:30 | disposition home or self-care (01) | DRG 807 ==
LOC: OPB 03:55 → 4S1 03:57 → 4E2 16:23